=== PATIENT | male | born 1965 | race Caucasian/White ===

== ENCOUNTER 2020-04-19 04:55 | Day surgery (SDC) | payer BC ==
[2020-04-17 11:57] VITALS: BMI 19.3
[2020-04-19] MEDS ORDERED: LIDOCAINE HCL 1%, 10 MG/ML (20ML VIAL) ONE ×2 (08:44→09:57)
[2020-04-19] MEDS ORDERED: PROPOFOL 20 ML ONE ×3 (09:05→10:01)
[2020-04-19] MEDS ORDERED: MIDAZOLAM HCL 2 MG/2 ML SINGLE DOSE VIAL ONE (09:05)
[2020-04-19] MEDS ORDERED: ceFAZolin 2 GRAM PREMIX BAG IVPB ONE (09:37)
[2020-04-19] MEDS ORDERED: ceFAZolin SODIUM 1 GM VIAL ONE (09:37)
[2020-04-19] MEDS ORDERED: DEXAMETHASONE SOD PHOSPHATE 4 MG/1 ML VIAL ONE (09:37)
[2020-04-19] MEDS ORDERED: ONDANSETRON 4 MG/2 ML VIAL ONE (09:37)
[2020-04-19] MEDS ORDERED: PALONOSETRON HCL 0.25 MG/5 ML VIAL IVPUSH ONE (10:00)
[2020-04-19] MEDS ORDERED: DEXAMETHASONE SODIUM PHOSPHATE 12 MG in SODIUM CHLORIDE 50 ML IVPB ONE (10:00)
[2020-04-19] MEDS ORDERED: ONDANSETRON 4 MG/2 ML VIAL IVPUSH PRN (10:22)
[2020-04-19] MEDS ORDERED: oxyCODONE HCL 5 MG TABLET PO PRN (10:22)
[2020-04-19] MEDS ORDERED: WATER IV ONE (10:30)
[2020-04-19] MEDS ORDERED: DEXTROSE 5% IVPB ONE (10:30)
[2020-04-19] MEDS ORDERED: SODIUM CHLORIDE 1,000 ML IV SCH (10:30)
[2020-04-19] MEDS ORDERED: DEXTROSE 5% IV ONE (10:30)
[2020-04-19] MEDS ORDERED: OXALIPLATIN IV ONE (10:30)
[2020-04-19] MEDS ORDERED: LEUCOVORIN IVPB ONE (10:30)
[2020-04-19] MEDS ORDERED: WATER IVPB ONE (10:30)
[2020-04-19] MEDS ORDERED: FLUOROURACIL 2,500 MG/50 ML VIAL IVPUSH ONE (12:30)
[2020-04-19] MEDS ORDERED: SODIUM CHLORIDE CP ONE (12:45)
[2020-04-19] MEDS ORDERED: FLUOROURACIL CP ONE (12:45)
[2020-04-19] MEDS ORDERED: SODIUM CHLORIDE 1,000 ML IV STA (13:25)
[2020-04-20 07:25] VITALS: BP 102/58; PULSE 78; TEMP 98
[2020-04-20] MEDS ORDERED: PORTA CATH FLUSH 10 ML IVPUSH ONE (07:25)
== END 2020-04-19 18:00 | disposition home or self-care (01) ==
LOC: JASU-SURG 04:55
PROVIDERS: ATTEND Surgery Vascular Surgery
PROC: B548ZZA Ultrasonography of Superior Vena Cava, Guidance (ICD-10-PCS; 2020-04-19)
PROC: 02H633Z Insertion of Infusion Device into Right Atrium, Percutaneous Approach (ICD-10-PCS; principal; 2020-04-19 09:30)
DX: C18.9 Malignant neoplasm of colon, unspecified (principal)
CPT/HCPCS: 36561; C1788; 71045-TC-FY; 76000-TC-FY; 94760; G0498; J1644; J2469; J9263

== ENCOUNTER 2020-04-23 08:15 | Day surgery (SDC) | payer BC, OTHER ==
[2020-04-23] MEDS ORDERED: SODIUM CHLORIDE 1,000 ML IV ONE (09:00)
[2020-04-23 16:07] VITALS: BP 108/64; PULSE 73; TEMP 98.4
== END 2020-04-23 13:20 | disposition home or self-care (01) ==
LOC: JONCCHEMO 08:15
PROVIDERS: ATTEND Internal Medicine Hematology & Oncology
PROC: 3E0437Z Introduction of Electrolytic and Water Balance Substance into Central Vein, Percutaneous Approach (ICD-10-PCS; principal; 2020-04-23)
DX: C18.9 Malignant neoplasm of colon, unspecified (principal); C77.2 Secondary and unspecified malignant neoplasm of intra-abdominal lymph nodes; Z76.89 Persons encountering health services in other specified circumstances
CPT/HCPCS: 96365; 96366

== ENCOUNTER 2020-05-02 07:52 | Day surgery (SDC) | payer BC ==
[2020-05-02 09:38] LABS: BASO % 0.9 % (0-2.0); EOS % 6.9 % (0-4.5); HEMATOCRIT 39.3 % (35.4-49); HEMOGLOBIN 13.6 GM/dL (11.7-16.9); MCH 33.2 pg (25.7-33.7); MCHC 34.7 g/dl (32.0-35.9); MEAN CELL VOLUME 95.7 fl (80-96); MEAN PLT VOLUME 8.3 fl (7.5-11.1); MONO % 12.5 % (3.8-10.2); NEUT % 59.7 % (42.8-82.8); PLATELET COUNT 158 K/MM3 (134-434); RBC 4.11 M/mm3 (4.00-5.60); RDW 11.8 % (11.9-15.9); WHITE BLOOD COUNT 3.1 K/mm3 (4.0-10.0)
[2020-05-02] MEDS ORDERED: PALONOSETRON HCL 0.25 MG/5 ML VIAL IVPUSH ONE (10:00)
[2020-05-02] MEDS ORDERED: DEXAMETHASONE SODIUM PHOSPHATE 12 MG in SODIUM CHLORIDE 50 ML IVPB ONE (10:00)
[2020-05-02 10:02] LABS: POTASSIUM 3.6 mmol/L (3.5-5.1)
[2020-05-02 10:04] LABS: CALCIUM 9.1 mg/dL (8.5-10.1)
[2020-05-02 10:05] LABS: ALBUMIN 3.8 g/dl (3.4-5.0); BLOOD UREA NITROGEN 14.3 mg/dL (7-18)
[2020-05-02 10:08] LABS: CREATININE 1.1 mg/dL (0.55-1.3)
[2020-05-02 10:10] LABS: BILIRUBIN,TOTAL 2.2 mg/dL (0.2-1); TOT PROT 6.9 g/dl (6.4-8.2)
[2020-05-02] MEDS ORDERED: WATER IVPB ONE (10:30)
[2020-05-02] MEDS ORDERED: DEXTROSE 5% IV ONE (10:30)
[2020-05-02] MEDS ORDERED: LEUCOVORIN IVPB ONE (10:30)
[2020-05-02] MEDS ORDERED: OXALIPLATIN IV ONE (10:30)
[2020-05-02] MEDS ORDERED: DEXTROSE 5% IVPB ONE (10:30)
[2020-05-02] MEDS ORDERED: WATER IV ONE (10:30)
[2020-05-02 11:22] VITALS: TEMP 98.1
[2020-05-02] MEDS ORDERED: PORTA CATH FLUSH 10 ML IVPUSH ONE (11:27)
[2020-05-02] MEDS ORDERED: FLUOROURACIL 500 MG/10 ML VIAL IVPUSH ONE (12:30)
[2020-05-02] MEDS ORDERED: SODIUM CHLORIDE 500 ML IV STA (12:31)
[2020-05-02] MEDS ORDERED: FLUOROURACIL CP ONE (12:45)
[2020-05-02] MEDS ORDERED: SODIUM CHLORIDE CP ONE (12:45)
[2020-05-02 16:20] VITALS: BP 112/65; PULSE 68
== END 2020-05-02 14:10 | disposition home or self-care (01) ==
LOC: JONCCHEMO 07:52
PROVIDERS: ATTEND Internal Medicine Hematology & Oncology
DX: Z51.11 Encounter for antineoplastic chemotherapy (principal); C18.9 Malignant neoplasm of colon, unspecified; C77.2 Secondary and unspecified malignant neoplasm of intra-abdominal lymph nodes
CPT/HCPCS: 36415; 80053; 85025; 96366; 96367; 96375; 96413; 96415; G0498; J2469; J9190; J9263

== ENCOUNTER 2020-05-04 07:00 | Day surgery (SDC) | payer BC ==
[2020-05-04] MEDS ORDERED: SODIUM CHLORIDE 1,000 ML IV SCH (09:15)
[2020-05-04 17:36] VITALS: TEMP 98.3
[2020-05-04 17:50] VITALS: BP 102/59; PULSE 68
[2020-05-04] MEDS ORDERED: PORTA CATH FLUSH 10 ML IVPUSH ONE (17:50)
== END 2020-05-04 13:20 | disposition home or self-care (01) ==
LOC: JONCNONCHE 07:00
PROVIDERS: ATTEND Internal Medicine Hematology & Oncology
PROC: 3E0437Z Introduction of Electrolytic and Water Balance Substance into Central Vein, Percutaneous Approach (ICD-10-PCS; principal; 2020-05-04)
DX: C18.9 Malignant neoplasm of colon, unspecified (principal); Z76.89 Persons encountering health services in other specified circumstances
CPT/HCPCS: 96360; 96361

== ENCOUNTER 2020-05-11 07:05 | Day surgery (SDC) | payer BC ==
[2020-05-11] MEDS ORDERED: SODIUM CHLORIDE 1,000 ML IV ONE (10:00)
[2020-05-11 16:24] VITALS: TEMP 98.1
[2020-05-11 16:26] VITALS: BP 111/66; PULSE 83
== END 2020-05-11 13:45 | disposition home or self-care (01) ==
LOC: JONCNONCHE 07:05
PROVIDERS: ATTEND Internal Medicine Hematology & Oncology
PROC: 3E043GC Introduction of Other Therapeutic Substance into Central Vein, Percutaneous Approach (ICD-10-PCS; principal; 2020-05-11)
DX: C20 Malignant neoplasm of rectum (principal); E86.0 Dehydration
CPT/HCPCS: 96360; 96361

== ENCOUNTER 2020-05-16 07:26 | Day surgery (SDC) | payer BC ==
[2020-05-16] MEDS ORDERED: DEXAMETHASONE SODIUM PHOSPHATE 12 MG in SODIUM CHLORIDE 50 ML IVPB ONE (09:30)
[2020-05-16] MEDS ORDERED: PALONOSETRON HCL 0.25 MG/5 ML VIAL IVPUSH ONE (09:30)
[2020-05-16 09:53] LABS: BASO % 2.1 % (0-2.0); EOS % 5.5 % (0-4.5); HEMATOCRIT 38.4 % (35.4-49); HEMOGLOBIN 13.5 GM/dL (11.7-16.9); LYMPH % 16.5 % (8-40); MCH 33.8 pg (25.7-33.7); MEAN CELL VOLUME 96.5 fl (80-96); MEAN PLT VOLUME 8.3 fl (7.5-11.1); MONO % 16.2 % (3.8-10.2); NEUT % 59.7 % (42.8-82.8); PLATELET COUNT 149 K/MM3 (134-434); RBC 3.98 M/mm3 (4.00-5.60); RDW 12.7 % (11.9-15.9); WHITE BLOOD COUNT 3.7 K/mm3 (4.0-10.0)
[2020-05-16] MEDS ORDERED: OXALIPLATIN IV ONE (10:00)
[2020-05-16] MEDS ORDERED: WATER IV ONE (10:00)
[2020-05-16] MEDS ORDERED: WATER IVPB ONE (10:00)
[2020-05-16] MEDS ORDERED: DEXTROSE 5% IV ONE (10:00)
[2020-05-16] MEDS ORDERED: LEUCOVORIN IVPB ONE (10:00)
[2020-05-16] MEDS ORDERED: DEXTROSE 5% IVPB ONE (10:00)
[2020-05-16 10:03] LABS: POTASSIUM 3.8 mmol/L (3.5-5.1)
[2020-05-16 10:05] LABS: ALBUMIN 3.9 g/dl (3.4-5.0); CALCIUM 9.1 mg/dL (8.5-10.1)
[2020-05-16 10:06] LABS: BLOOD UREA NITROGEN 13.6 mg/dL (7-18); MAGNESIUM 2.2 mg/dL (1.8-2.4)
[2020-05-16 10:09] LABS: CREATININE 1.2 mg/dL (0.55-1.3)
[2020-05-16 10:10] LABS: BILIRUBIN,TOTAL 2.3 mg/dL (0.2-1); TOT PROT 7.2 g/dl (6.4-8.2)
[2020-05-16] MEDS ORDERED: FLUOROURACIL 500 MG/10 ML VIAL IVPUSH ONE (12:00)
[2020-05-16] MEDS ORDERED: FLUOROURACIL CP ONE (12:15)
[2020-05-16] MEDS ORDERED: SODIUM CHLORIDE CP ONE (12:15)
[2020-05-16 14:32] LABS: BILIRUBIN,DIRECT 0.5 mg/dL (0.0-0.2)
[2020-05-16 17:31] VITALS: TEMP 97.7
[2020-05-16 17:33] VITALS: BP 109/67; PULSE 71
== END 2020-05-16 13:50 | disposition home or self-care (01) ==
LOC: JONCCHEMO 07:26
PROVIDERS: ATTEND Internal Medicine Hematology & Oncology
DX: Z51.11 Encounter for antineoplastic chemotherapy (principal); C19 Malignant neoplasm of rectosigmoid junction
CPT/HCPCS: 36415; 80053; 82248; 82378; 83735; 85025; 96366; 96367; 96375; 96411; 96413; 96415; G0498; J2469; J9190; J9263

== ENCOUNTER 2020-05-18 06:58 | Day surgery (SDC) | payer BC ==
[2020-05-18] MEDS ORDERED: SODIUM CHLORIDE 1,000 ML IV SCH (08:00)
[2020-05-18 12:59] VITALS: TEMP 98.6
[2020-05-18] MEDS ORDERED: PORTA CATH FLUSH 10 ML IVPUSH ONE (13:00)
[2020-05-18 13:41] VITALS: BP 88/51; PULSE 63
== END 2020-05-18 13:20 | disposition home or self-care (01) ==
LOC: JONCNONCHE 06:58
PROVIDERS: ATTEND Internal Medicine Hematology & Oncology
PROC: 3E0437Z Introduction of Electrolytic and Water Balance Substance into Central Vein, Percutaneous Approach (ICD-10-PCS; principal; 2020-05-18)
DX: C19 Malignant neoplasm of rectosigmoid junction (principal)
CPT/HCPCS: 96360; 96361

== ENCOUNTER 2020-05-25 07:46 | Day surgery (SDC) | payer BC ==
[2020-05-25] MEDS ORDERED: SODIUM CHLORIDE 1,000 ML IV SCH (10:15)
[2020-05-25 11:15] LABS: BASO % 2.3 % (0-2.0); EOS % 12.3 % (0-4.5); HEMATOCRIT 34.2 % (35.4-49); HEMOGLOBIN 12.1 GM/dL (11.7-16.9); LYMPH % 14.6 % (8-40); MCH 33.9 pg (25.7-33.7); MCHC 35.5 g/dl (32.0-35.9); MEAN CELL VOLUME 95.7 fl (80-96); MEAN PLT VOLUME 8.9 fl (7.5-11.1); MONO % 12.1 % (3.8-10.2); NEUT % 58.7 % (42.8-82.8); PLATELET COUNT 138 K/MM3 (134-434); RBC 3.57 M/mm3 (4.00-5.60); RDW 13.6 % (11.9-15.9); WHITE BLOOD COUNT 3.7 K/mm3 (4.0-10.0)
[2020-05-25 11:54] LABS: POTASSIUM 3.7 mmol/L (3.5-5.1)
[2020-05-25 11:55] LABS: CALCIUM 8.7 mg/dL (8.5-10.1)
[2020-05-25 11:56] LABS: ALBUMIN 3.5 g/dl (3.4-5.0); BLOOD UREA NITROGEN 12.2 mg/dL (7-18)
[2020-05-25 12:00] LABS: BILIRUBIN,TOTAL 1.8 mg/dL (0.2-1)
[2020-05-25 12:02] LABS: TOT PROT 6.5 g/dl (6.4-8.2)
[2020-05-25 14:34] VITALS: TEMP 97.7
[2020-05-25 14:35] VITALS: BP 111/69; PULSE 81
== END 2020-05-25 12:00 | disposition home or self-care (01) ==
LOC: JONCNONCHE 07:46
PROVIDERS: ATTEND Internal Medicine Hematology & Oncology
PROC: 3E0437Z Introduction of Electrolytic and Water Balance Substance into Central Vein, Percutaneous Approach (ICD-10-PCS; principal; 2020-05-25)
DX: C19 Malignant neoplasm of rectosigmoid junction (principal); Z76.89 Persons encountering health services in other specified circumstances
CPT/HCPCS: 36415; 80053; 85025; 96360; 96361

== ENCOUNTER 2020-05-30 07:40 | Day surgery (SDC) | payer BC ==
[2020-05-30] MEDS ORDERED: DEXAMETHASONE SODIUM PHOSPHATE 12 MG in SODIUM CHLORIDE 50 ML IVPB ONE (09:30)
[2020-05-30] MEDS ORDERED: PALONOSETRON HCL 0.25 MG/5 ML VIAL IVPUSH ONE (09:30)
[2020-05-30 09:35] LABS: BASO % 2.8 % (0-2.0); EOS % 8.4 % (0-4.5); HEMATOCRIT 36.9 % (35.4-49); HEMOGLOBIN 12.9 GM/dL (11.7-16.9); LYMPH % 17.2 % (8-40); MCH 34.2 pg (25.7-33.7); MEAN CELL VOLUME 97.6 fl (80-96); MEAN PLT VOLUME 8.3 fl (7.5-11.1); MONO % 16.5 % (3.8-10.2); NEUT % 55.1 % (42.8-82.8); PLATELET COUNT 126 K/MM3 (134-434); RBC 3.78 M/mm3 (4.00-5.60); RDW 14.9 % (11.9-15.9); WHITE BLOOD COUNT 3.7 K/mm3 (4.0-10.0)
[2020-05-30 09:59] LABS: CALCIUM 8.9 mg/dL (8.5-10.1)
[2020-05-30 10:00] LABS: ALBUMIN 3.7 g/dl (3.4-5.0); BLOOD UREA NITROGEN 17.2 mg/dL (7-18)
[2020-05-30] MEDS ORDERED: DEXTROSE 5% IVPB ONE (10:00)
[2020-05-30] MEDS ORDERED: OXALIPLATIN IV ONE (10:00)
[2020-05-30] MEDS ORDERED: WATER IV ONE (10:00)
[2020-05-30] MEDS ORDERED: DEXTROSE 5% IV ONE (10:00)
[2020-05-30] MEDS ORDERED: WATER IVPB ONE (10:00)
[2020-05-30] MEDS ORDERED: LEUCOVORIN IVPB ONE (10:00)
[2020-05-30 10:03] LABS: CREATININE 1.1 mg/dL (0.55-1.3)
[2020-05-30 10:05] LABS: BILIRUBIN,TOTAL 2.2 mg/dL (0.2-1); TOT PROT 6.9 g/dl (6.4-8.2)
[2020-05-30 10:09] LABS: POTASSIUM 3.6 mmol/L (3.5-5.1)
[2020-05-30 10:50] LABS: MAGNESIUM 2.2 mg/dL (1.8-2.4)
[2020-05-30] MEDS ORDERED: FLUOROURACIL 500 MG/10 ML VIAL IVPUSH ONE (12:00)
[2020-05-30] MEDS ORDERED: SODIUM CHLORIDE CP ONE (12:15)
[2020-05-30] MEDS ORDERED: FLUOROURACIL CP ONE (12:15)
[2020-05-30 15:54] VITALS: TEMP 98.1
[2020-05-30 15:55] VITALS: BP 108/70; PULSE 69
== END 2020-05-30 14:30 | disposition home or self-care (01) ==
LOC: JONCCHEMO 07:40
PROVIDERS: ATTEND Internal Medicine Hematology & Oncology
DX: Z51.11 Encounter for antineoplastic chemotherapy (principal); C19 Malignant neoplasm of rectosigmoid junction
CPT/HCPCS: 36415; 80053; 83735; 85025; 96366; 96367; 96375; 96413; 96415; G0498; J2469; J9190; J9263

== ENCOUNTER 2020-06-01 07:04 | Day surgery (SDC) | payer BC ==
[2020-06-01] MEDS: SODIUM CHLORIDE 1,000 ML IV ONE ×2 (11:05→11:26)
[2020-06-01 16:15] VITALS: BP 100/62; PULSE 65; TEMP 99
== END 2020-06-01 13:20 | disposition home or self-care (01) ==
LOC: JONCNONCHE 07:04
PROVIDERS: ATTEND Internal Medicine Hematology & Oncology
DX: C19 Malignant neoplasm of rectosigmoid junction (principal); Z76.89 Persons encountering health services in other specified circumstances
CPT/HCPCS: 96360; 96361

== ENCOUNTER 2020-06-06 07:35 | Day surgery (SDC) | payer BC ==
[2020-06-06] MEDS ORDERED: SODIUM CHLORIDE 1,000 ML IV ONE (11:15)
[2020-06-06 14:14] LABS: BASO % 1.6 % (0-2.0); EOS % 11.5 % (0-4.5); HEMATOCRIT 36.1 % (35.4-49); MCH 34.9 pg (25.7-33.7); MCHC 36.1 g/dl (32.0-35.9); MEAN CELL VOLUME 96.6 fl (80-96); MEAN PLT VOLUME 9.2 fl (7.5-11.1); MONO % 18.4 % (3.8-10.2); NEUT % 47.5 % (42.8-82.8); PLATELET COUNT 150 K/MM3 (134-434); RBC 3.73 M/mm3 (4.00-5.60); RDW 16.3 % (11.9-15.9); WHITE BLOOD COUNT 2.9 K/mm3 (4.0-10.0)
[2020-06-06 14:47] LABS: POTASSIUM 4.1 mmol/L (3.5-5.1)
[2020-06-06 14:49] LABS: BLOOD UREA NITROGEN 18.6 mg/dL (7-18); CALCIUM 9.4 mg/dL (8.5-10.1)
[2020-06-06 14:53] LABS: CREATININE 1.1 mg/dL (0.55-1.3)
[2020-06-06 14:54] LABS: BILIRUBIN,TOTAL 2.3 mg/dL (0.2-1); TOT PROT 7.2 g/dl (6.4-8.2)
[2020-06-06 16:41] VITALS: TEMP 98.1
[2020-06-06 16:42] VITALS: BP 123/75; PULSE 77
== END 2020-06-06 15:30 | disposition home or self-care (01) ==
LOC: JONCCHEMO 07:35
PROVIDERS: ATTEND Internal Medicine Hematology & Oncology
PROC: 3E0437Z Introduction of Electrolytic and Water Balance Substance into Central Vein, Percutaneous Approach (ICD-10-PCS; principal; 2020-06-06)
DX: C19 Malignant neoplasm of rectosigmoid junction (principal); Z76.89 Persons encountering health services in other specified circumstances
CPT/HCPCS: 36415; 80053; 85025; 96360; 96361

== ENCOUNTER 2020-06-08 08:10 | Day surgery (SDC) | payer BC ==
[2020-06-08] MEDS ORDERED: SODIUM CHLORIDE 1,000 ML IV ONE (10:30)
[2020-06-08 12:52] VITALS: TEMP 98.1
[2020-06-08 13:09] VITALS: BP 105/64; PULSE 63
[2020-06-08] MEDS ORDERED: PORTA CATH FLUSH 10 ML IVPUSH ONE (13:09)
== END 2020-06-08 12:20 | disposition home or self-care (01) ==
LOC: JONCNONCHE 08:10
PROVIDERS: ATTEND Internal Medicine Hematology & Oncology
PROC: 3E0437Z Introduction of Electrolytic and Water Balance Substance into Central Vein, Percutaneous Approach (ICD-10-PCS; principal; 2020-06-08)
DX: C19 Malignant neoplasm of rectosigmoid junction (principal); C77.9 Secondary and unspecified malignant neoplasm of lymph node, unspecified; Z76.89 Persons encountering health services in other specified circumstances
CPT/HCPCS: 96360; 96361

== ENCOUNTER 2020-06-13 07:35 | Day surgery (SDC) | payer BC ==
[2020-06-13 09:29] LABS: BASO % 2.7 % (0-2.0); EOS % 7.8 % (0-4.5); HEMATOCRIT 36.3 % (35.4-49); HEMOGLOBIN 12.6 GM/dL (11.7-16.9); LYMPH % 17.1 % (8-40); MCH 34.7 pg (25.7-33.7); MCHC 34.7 g/dl (32.0-35.9); MEAN PLT VOLUME 8.5 fl (7.5-11.1); MONO % 18.6 % (3.8-10.2); NEUT % 53.8 % (42.8-82.8); PLATELET COUNT 126 K/MM3 (134-434); RBC 3.63 M/mm3 (4.00-5.60); WHITE BLOOD COUNT 3.5 K/mm3 (4.0-10.0)
[2020-06-13 09:54] LABS: POTASSIUM 3.8 mmol/L (3.5-5.1)
[2020-06-13 09:56] LABS: ALBUMIN 3.8 g/dl (3.4-5.0); CALCIUM 9.5 mg/dL (8.5-10.1)
[2020-06-13 09:57] LABS: BLOOD UREA NITROGEN 11.1 mg/dL (7-18); MAGNESIUM 2.2 mg/dL (1.8-2.4)
[2020-06-13 10:00] LABS: CREATININE 1.1 mg/dL (0.55-1.3)
[2020-06-13] MEDS ORDERED: PALONOSETRON HCL 0.25 MG/5 ML VIAL IVPUSH ONE (10:00)
[2020-06-13] MEDS ORDERED: DEXAMETHASONE SODIUM PHOSPHATE 12 MG in SODIUM CHLORIDE 50 ML IVPB ONE (10:00)
[2020-06-13] MEDS ORDERED: LEUCOVORIN IVPB ONE (10:30)
[2020-06-13] MEDS ORDERED: WATER IVPB ONE (10:30)
[2020-06-13] MEDS ORDERED: DEXTROSE 5% IVPB ONE (10:30)
[2020-06-13] MEDS ORDERED: OXALIPLATIN IV ONE (10:30)
[2020-06-13] MEDS ORDERED: WATER IV ONE (10:30)
[2020-06-13] MEDS ORDERED: DEXTROSE 5% IV ONE (10:30)
[2020-06-13] MEDS ORDERED: SODIUM CHLORIDE 500 ML IV STA (10:40)
[2020-06-13] MEDS ORDERED: FLUOROURACIL 500 MG/10 ML VIAL IVPUSH ONE (12:30)
[2020-06-13] MEDS ORDERED: FLUOROURACIL CP ONE (12:45)
[2020-06-13] MEDS ORDERED: SODIUM CHLORIDE CP ONE (12:45)
[2020-06-13 15:01] VITALS: TEMP 97.9
[2020-06-13 15:03] VITALS: BP 109/69; PULSE 72
== END 2020-06-13 14:17 | disposition home or self-care (01) ==
LOC: JONCCHEMO 07:35
PROVIDERS: ATTEND Internal Medicine Hematology & Oncology
DX: Z51.11 Encounter for antineoplastic chemotherapy (principal); C19 Malignant neoplasm of rectosigmoid junction; C77.9 Secondary and unspecified malignant neoplasm of lymph node, unspecified
CPT/HCPCS: 36415; 80053; 82378; 83735; 85025; 96366; 96367; 96375; 96413; 96415; G0498; J2469; J9190; J9263

== ENCOUNTER 2020-06-15 07:24 | Day surgery (SDC) | payer BC ==
[2020-06-15] MEDS ORDERED: SODIUM CHLORIDE 1,000 ML IV ONE (08:30)
[2020-06-15 16:19] VITALS: TEMP 98.1
[2020-06-15 16:25] VITALS: BP 103/58; PULSE 60
== END 2020-06-15 13:25 | disposition home or self-care (01) ==
LOC: JONCNONCHE 07:24
PROVIDERS: ATTEND Internal Medicine Hematology & Oncology
DX: C19 Malignant neoplasm of rectosigmoid junction (principal); C77.9 Secondary and unspecified malignant neoplasm of lymph node, unspecified; Z76.89 Persons encountering health services in other specified circumstances
CPT/HCPCS: 96360; 96361

== ENCOUNTER 2020-06-20 07:50 | Day surgery (SDC) | payer BC ==
[2020-06-20 11:17] LABS: HEMATOCRIT 33.8 % (35.4-49); HEMOGLOBIN 11.9 GM/dL (11.7-16.9); MCH 35.2 pg (25.7-33.7); MCHC 35.2 g/dl (32.0-35.9); MEAN CELL VOLUME 100.1 fl (80-96); MEAN PLT VOLUME 9.4 fl (7.5-11.1); PLATELET COUNT 119 K/MM3 (134-434); RBC 3.37 M/mm3 (4.00-5.60); RDW 17.8 % (11.9-15.9); WHITE BLOOD COUNT 2.1 K/mm3 (4.0-10.0)
[2020-06-20] MEDS ORDERED: SODIUM CHLORIDE 1,000 ML IV ONE (11:30)
[2020-06-20 11:37] LABS: POTASSIUM 4.1 mmol/L (3.5-5.1)
[2020-06-20 11:40] LABS: ALBUMIN 3.7 g/dl (3.4-5.0); BLOOD UREA NITROGEN 16.1 mg/dL (7-18); CALCIUM 9.1 mg/dL (8.5-10.1)
[2020-06-20 11:43] LABS: CREATININE 1.1 mg/dL (0.55-1.3)
[2020-06-20 11:44] LABS: BILIRUBIN,TOTAL 1.9 mg/dL (0.2-1); TOT PROT 6.9 g/dl (6.4-8.2)
[2020-06-20 13:35] LABS: ANISOCYTOSIS 1+; MACROCYTOSIS 1+; PLATELET ESTIMATE DECREASED
[2020-06-20] MEDS ORDERED: TBO-FILGRASTIM 300 MCG/0.5 ML DISP.SYRINGE SQ ONE (14:04)
[2020-06-20 17:16] VITALS: BP 108/71; PULSE 79; TEMP 98.1
== END 2020-06-20 14:25 | disposition home or self-care (01) ==
LOC: JONCCHEMO 07:50
PROVIDERS: ATTEND Internal Medicine Hematology & Oncology
DX: C19 Malignant neoplasm of rectosigmoid junction (principal); C77.9 Secondary and unspecified malignant neoplasm of lymph node, unspecified; Z76.89 Persons encountering health services in other specified circumstances
CPT/HCPCS: 36415; 80053; 85027; 96360; 96372; J1447

== ENCOUNTER 2020-06-27 11:39 | Day surgery (SDC) | payer BC ==
[~2020-06-27 11:39] MED LIST: SODIUM CHLORIDE 1,000 ML IV STA
[2020-06-27 14:34] VITALS: TEMP 98.3
[2020-06-27 14:35] VITALS: BP 111/74; PULSE 82
== END 2020-06-27 14:10 | disposition home or self-care (01) ==
LOC: JONCNONCHE 11:39
PROVIDERS: ATTEND Internal Medicine Hematology & Oncology
PROC: 3E0437Z Introduction of Electrolytic and Water Balance Substance into Central Vein, Percutaneous Approach (ICD-10-PCS; principal; 2020-06-27)
DX: C19 Malignant neoplasm of rectosigmoid junction (principal); Z76.89 Persons encountering health services in other specified circumstances
CPT/HCPCS: 96360; 96361

== ENCOUNTER 2020-07-04 06:55 | Day surgery (SDC) | payer BC ==
[2020-07-04 09:23] LABS: BASO % 3.5 % (0-2.0); EOS % 8.4 % (0-4.5); HEMATOCRIT 36.8 % (35.4-49); HEMOGLOBIN 12.9 GM/dL (11.7-16.9); LYMPH % 18.3 % (8-40); MCH 36.6 pg (25.7-33.7); MCHC 35.2 g/dl (32.0-35.9); MEAN CELL VOLUME 104.2 fl (80-96); MEAN PLT VOLUME 8.6 fl (7.5-11.1); NEUT % 55.8 % (42.8-82.8); PLATELET COUNT 172 K/MM3 (134-434); RBC 3.53 M/mm3 (4.00-5.60); RDW 19.2 % (11.9-15.9); WHITE BLOOD COUNT 3.3 K/mm3 (4.0-10.0)
[2020-07-04 09:43] LABS: POTASSIUM 3.9 mmol/L (3.5-5.1)
[2020-07-04 09:45] LABS: CALCIUM 8.9 mg/dL (8.5-10.1)
[2020-07-04 09:46] LABS: ALBUMIN 3.8 g/dl (3.4-5.0); BLOOD UREA NITROGEN 13.8 mg/dL (7-18); MAGNESIUM 2.3 mg/dL (1.8-2.4)
[2020-07-04 09:50] LABS: BILIRUBIN,TOTAL 1.7 mg/dL (0.2-1); TOT PROT 6.9 g/dl (6.4-8.2)
[2020-07-04] MEDS ORDERED: SODIUM CHLORIDE 0.45% 1,000 ML IV SCH (10:00)
[2020-07-04] MEDS ORDERED: DEXAMETHASONE SODIUM PHOSPHATE 12 MG in SODIUM CHLORIDE 50 ML IVPB ONE (10:00)
[2020-07-04] MEDS ORDERED: PALONOSETRON HCL 0.25 MG/5 ML VIAL IVPUSH ONE (10:00)
[2020-07-04] MEDS ORDERED: OXALIPLATIN IV ONE (10:30)
[2020-07-04] MEDS ORDERED: WATER IV ONE (10:30)
[2020-07-04] MEDS ORDERED: WATER IVPB ONE (10:30)
[2020-07-04] MEDS ORDERED: LEUCOVORIN IVPB ONE (10:30)
[2020-07-04] MEDS ORDERED: DEXTROSE 5% IV ONE (10:30)
[2020-07-04] MEDS ORDERED: DEXTROSE 5% IVPB ONE (10:30)
[2020-07-04] MEDS ORDERED: FLUOROURACIL 2,500 MG/50 ML VIAL IVPUSH ONE (12:30)
[2020-07-04] MEDS ORDERED: SODIUM CHLORIDE CP ONE (12:45)
[2020-07-04] MEDS ORDERED: FLUOROURACIL CP ONE (12:45)
[2020-07-04] MEDS ORDERED: DEXAMETHASONE SOD PHOSPHATE 20 MG/5 ML VIAL IVPB ONE (14:09)
[2020-07-04] MEDS ORDERED: FAMOTIDINE 20 MG/50 ML IVPB 20 MG/50 ML MG IVPB ONE (14:10)
[2020-07-04 17:42] VITALS: TEMP 97.9
[2020-07-04] MEDS ORDERED: PORTA CATH FLUSH 10 ML IVPUSH ONE (18:10)
[2020-07-04 18:11] VITALS: BP 94/60; PULSE 57
== END 2020-07-04 17:15 | disposition home or self-care (01) ==
LOC: JONCCHEMO 06:55
PROVIDERS: ATTEND Internal Medicine Hematology & Oncology
DX: Z51.11 Encounter for antineoplastic chemotherapy (principal); C19 Malignant neoplasm of rectosigmoid junction
CPT/HCPCS: 36415; 80053; 83735; 85025; 96361; 96366; 96367; 96375; 96413; G0498; J2469; J9263

== ENCOUNTER 2020-07-06 07:21 | Day surgery (SDC) | payer BC ==
[2020-07-06] MEDS ORDERED: SODIUM CHLORIDE 1,000 ML IV STA (13:23)
[2020-07-06 16:29] VITALS: BP 96/57; PULSE 60; TEMP 98.3
== END 2020-07-06 15:30 | disposition home or self-care (01) ==
LOC: JONCNONCHE 07:21
PROVIDERS: ATTEND Internal Medicine Hematology & Oncology
PROC: 3E043GC Introduction of Other Therapeutic Substance into Central Vein, Percutaneous Approach (ICD-10-PCS; principal; 2020-07-06)
DX: C19 Malignant neoplasm of rectosigmoid junction (principal); Z76.89 Persons encountering health services in other specified circumstances
CPT/HCPCS: 96365; 96366

== ENCOUNTER 2020-07-13 06:45 | Day surgery (SDC) | payer BC, OTHER ==
[2020-07-13] MEDS ORDERED: SODIUM CHLORIDE 1,000 ML IV ONE (10:15)
[2020-07-13 15:49] VITALS: TEMP 97.7
[2020-07-13 15:50] VITALS: BP 114/67; PULSE 61
[2020-07-13] MEDS ORDERED: PORTA CATH FLUSH 10 ML IVPUSH ONE (15:50)
== END 2020-07-13 13:25 | disposition home or self-care (01) ==
LOC: JONCNONCHE 06:45
PROVIDERS: ATTEND Internal Medicine Hematology & Oncology
PROC: 3E0437Z Introduction of Electrolytic and Water Balance Substance into Central Vein, Percutaneous Approach (ICD-10-PCS; principal; 2020-07-13)
DX: C19 Malignant neoplasm of rectosigmoid junction (principal); Z76.89 Persons encountering health services in other specified circumstances
CPT/HCPCS: 96360; 96361

== ENCOUNTER 2020-07-18 07:40 | Day surgery (SDC) | payer BC, OTHER ==
[2020-07-18] MEDS ORDERED: FAMOTIDINE 20 MG/50 ML IVPB 20 MG/50 ML MG IVPB ONE (09:30)
[2020-07-18] MEDS ORDERED: DEXAMETHASONE SODIUM PHOSPHATE 20 MG, DIPHENHYDRAMINE 25 MG in SODIUM CHLORIDE 100 ML IVPB ONE (09:30)
[2020-07-18] MEDS ORDERED: PALONOSETRON HCL 0.25 MG/5 ML VIAL IVPUSH ONE (09:30)
[2020-07-18] MEDS ORDERED: SODIUM CHLORIDE 500 ML IV STA (09:55)
[2020-07-18] MEDS ORDERED: DEXAMETHASONE SOD PHOSPHATE 20 MG/5 ML VIAL IVPB ONE (09:55)
[2020-07-18 09:57] LABS: BASO % 2.4 % (0-2.0); EOS % 10.4 % (0-4.5); HEMATOCRIT 35.9 % (35.4-49); HEMOGLOBIN 12.8 GM/dL (11.7-16.9); LYMPH % 15.4 % (8-40); MCH 37.3 pg (25.7-33.7); MCHC 35.6 g/dl (32.0-35.9); MEAN CELL VOLUME 104.8 fl (80-96); MEAN PLT VOLUME 8.4 fl (7.5-11.1); MONO % 14.4 % (3.8-10.2); NEUT % 57.4 % (42.8-82.8); PLATELET COUNT 143 K/MM3 (134-434); RBC 3.42 M/mm3 (4.00-5.60); RDW 16.9 % (11.9-15.9); WHITE BLOOD COUNT 3.6 K/mm3 (4.0-10.0)
[2020-07-18] MEDS ORDERED: OXALIPLATIN IV ONE (10:00)
[2020-07-18] MEDS ORDERED: DEXTROSE 5% IVPB ONE (10:00)
[2020-07-18] MEDS ORDERED: WATER IV ONE (10:00)
[2020-07-18] MEDS ORDERED: WATER IVPB ONE (10:00)
[2020-07-18] MEDS ORDERED: LEUCOVORIN IVPB ONE (10:00)
[2020-07-18] MEDS ORDERED: DEXTROSE 5% IV ONE (10:00)
[2020-07-18 10:16] LABS: CALCIUM 9.1 mg/dL (8.5-10.1)
[2020-07-18 10:17] LABS: ALBUMIN 3.8 g/dl (3.4-5.0); BLOOD UREA NITROGEN 10.8 mg/dL (7-18)
[2020-07-18 10:21] LABS: BILIRUBIN,TOTAL 1.7 mg/dL (0.2-1); TOT PROT 6.9 g/dl (6.4-8.2)
[2020-07-18] MEDS ORDERED: DEXAMETHASONE SODIUM PHOSPHATE 12 MG in SODIUM CHLORIDE 50 ML IVPB ONE (12:00)
[2020-07-18] MEDS ORDERED: FLUOROURACIL 2,500 MG/50 ML VIAL IVPUSH ONE (12:00)
[2020-07-18] MEDS ORDERED: FLUOROURACIL CP ONE (12:15)
[2020-07-18] MEDS ORDERED: SODIUM CHLORIDE CP ONE (12:15)
[2020-07-18 18:33] VITALS: TEMP 98
[2020-07-18 18:43] VITALS: BP 107/77; PULSE 61
[2020-07-18] MEDS ORDERED: PORTA CATH FLUSH 10 ML IVPUSH ONE (18:43)
== END 2020-07-18 17:20 | disposition home or self-care (01) ==
LOC: JONCCHEMO 07:40
PROVIDERS: ATTEND Internal Medicine Hematology & Oncology
PROC: 3E043GC Introduction of Other Therapeutic Substance into Central Vein, Percutaneous Approach (ICD-10-PCS; principal; 2020-07-18)
PROC: 3E043GC Introduction of Other Therapeutic Substance into Central Vein, Percutaneous Approach (ICD-10-PCS; 2020-07-18)
DX: C19 Malignant neoplasm of rectosigmoid junction (principal); Z76.89 Persons encountering health services in other specified circumstances
CPT/HCPCS: 36415; 80053; 85025; 96361; 96365; 96366; J2469

== ENCOUNTER 2020-07-19 09:45 | Day surgery (SDC) | payer BC, OTHER ==
[2020-07-19] MEDS ORDERED: SODIUM CHLORIDE CP ONE (11:30)
[2020-07-19] MEDS ORDERED: FLUOROURACIL CP ONE (11:30)
[2020-07-19] MEDS ORDERED: DEXAMETHASONE SODIUM PHOSPHATE 10 MG in SODIUM CHLORIDE 50 ML IVPB ONE (12:15)
[2020-07-19 16:15] VITALS: BP 111/60; PULSE 71; TEMP 98.1
== END 2020-07-19 16:00 | disposition home or self-care (01) ==
LOC: JONCNONCHE 09:45
PROVIDERS: ATTEND Internal Medicine Hematology & Oncology
PROC: 3E04329 Introduction of Other Anti-infective into Central Vein, Percutaneous Approach (ICD-10-PCS; principal; 2020-07-19)
PROC: 3E04305 Introduction of Other Antineoplastic into Central Vein, Percutaneous Approach (ICD-10-PCS; 2020-07-19)
PROC: 3E043GC Introduction of Other Therapeutic Substance into Central Vein, Percutaneous Approach (ICD-10-PCS; 2020-07-19)
DX: Z51.11 Encounter for antineoplastic chemotherapy (principal); C19 Malignant neoplasm of rectosigmoid junction
CPT/HCPCS: 96374; G0498

== ENCOUNTER → 2020-07-25 | Day surgery (SDC) | payer BC, OTHER | END | disposition home or self-care (01) | LOC: JRADIR 10:18 | PROVIDERS: ATTEND Internal Medicine Hematology & Oncology | PROC: B518YZA Fluoroscopy of Superior Vena Cava using Other Contrast, Guidance (ICD-10-PCS; principal; 2020-07-25) | DX: C20 Malignant neoplasm of rectum (principal) | CPT/HCPCS: 36598 ==

== ENCOUNTER 2020-07-27 06:37 | Day surgery (SDC) | payer BC, OTHER ==
[2020-07-27] MEDS ORDERED: SODIUM CHLORIDE 1,000 ML IV ONE (08:15)
[2020-07-27 14:08] VITALS: TEMP 98
[2020-07-27 14:09] VITALS: BP 99/64; PULSE 64
== END 2020-07-27 11:35 | disposition home or self-care (01) ==
LOC: JONCNONCHE 06:37
PROVIDERS: ATTEND Internal Medicine Hematology & Oncology
PROC: 3E0437Z Introduction of Electrolytic and Water Balance Substance into Central Vein, Percutaneous Approach (ICD-10-PCS; principal; 2020-07-27)
DX: C20 Malignant neoplasm of rectum (principal); Z76.89 Persons encountering health services in other specified circumstances
CPT/HCPCS: 96360; 96361

== ENCOUNTER → 2020-08-01 | Day surgery (SDC) | payer BC, OTHER ==
[~2020-08-01] MED LIST changes: +DEXAMETHASONE SODIUM PHOSPHATE 20 MG, DIPHENHYDRAMINE 25 MG in SODIUM CHLORIDE 100 ML IVPB ONE; +DEXTROSE 5% IV ONE; +DEXTROSE 5% IVPB ONE; +FAMOTIDINE 20 MG/50 ML IVPB 20 MG/50 ML MG IVPB ONE; +FLUOROURACIL 2,500 MG/50 ML VIAL IVPUSH ONE; +FLUOROURACIL CP ONE; +LEUCOVORIN IVPB ONE; +OXALIPLATIN IV ONE; +PALONOSETRON HCL 0.25 MG/5 ML VIAL IVPUSH ONE; -SODIUM CHLORIDE 1,000 ML IV STA; +SODIUM CHLORIDE CP ONE; +WATER IV ONE; +WATER IVPB ONE
[2020-08-01 09:51] LABS: BASO % 2.6 % (0-2.0); HEMATOCRIT 36.1 % (35.4-49); HEMOGLOBIN 12.8 GM/dL (11.7-16.9); LYMPH % 16.4 % (8-40); MCH 37.6 pg (25.7-33.7); MCHC 35.4 g/dl (32.0-35.9); MEAN CELL VOLUME 106.1 fl (80-96); MEAN PLT VOLUME 8.3 fl (7.5-11.1); MONO % 14.9 % (3.8-10.2); NEUT % 59.1 % (42.8-82.8); PLATELET COUNT 144 K/MM3 (134-434); RDW 14.9 % (11.9-15.9); WHITE BLOOD COUNT 3.7 K/mm3 (4.0-10.0)
[2020-08-01 10:15] LABS: ALBUMIN 3.9 g/dl (3.4-5.0); BLOOD UREA NITROGEN 14.4 mg/dL (7-18); CALCIUM 8.5 mg/dL (8.5-10.1); MAGNESIUM 2.1 mg/dL (1.8-2.4)
[2020-08-01 10:18] LABS: BILIRUBIN,DIRECT 0.4 mg/dL (0.0-0.2); CREATININE 1.1 mg/dL (0.55-1.3)
[2020-08-01 10:20] LABS: BILIRUBIN,TOTAL 1.9 mg/dL (0.2-1); TOT PROT 6.8 g/dl (6.4-8.2)
[2020-08-01 11:28] LABS: ANISOCYTOSIS 1+; MACROCYTOSIS 1+; PLATELET ESTIMATE DECREASED
== END | disposition home or self-care (01) ==
LOC: JONCCHEMO 07:42
PROVIDERS: ATTEND Internal Medicine Hematology & Oncology
DX: Z53.8 Procedure and treatment not carried out for other reasons (principal)
CPT/HCPCS: 36415; 80048; 80076; 83735; 85025

== ENCOUNTER 2020-08-08 07:12 | Day surgery (SDC) | payer BC, OTHER ==
[2020-08-08 10:08] LABS: HEMATOCRIT 36.3 % (35.4-49); HEMOGLOBIN 13.1 GM/dL (11.7-16.9); MCH 37.5 pg (25.7-33.7); MCHC 36.1 g/dl (32.0-35.9); MEAN PLT VOLUME 8.6 fl (7.5-11.1); PLATELET COUNT 136 K/MM3 (134-434); RBC 3.49 M/mm3 (4.00-5.60); RDW 13.4 % (11.9-15.9); WHITE BLOOD COUNT 2.4 K/mm3 (4.0-10.0)
[2020-08-08] MEDS ORDERED: SODIUM CHLORIDE 1,000 ML IV STA (10:24)
[2020-08-08 10:44] LABS: BLOOD UREA NITROGEN 14.7 mg/dL (7-18); CALCIUM 8.8 mg/dL (8.5-10.1)
[2020-08-08 10:45] LABS: ALBUMIN 3.9 g/dl (3.4-5.0); MAGNESIUM 2.2 mg/dL (1.8-2.4)
[2020-08-08 10:49] LABS: BILIRUBIN,TOTAL 2.1 mg/dL (0.2-1); TOT PROT 6.9 g/dl (6.4-8.2)
[2020-08-08 11:52] LABS: ANISOCYTOSIS 0; MACROCYTOSIS 0
[2020-08-08 11:54] LABS: PLATELET ESTIMATE NORMAL
[2020-08-08] MEDS: TBO-FILGRASTIM 300 MCG/0.5 ML DISP.SYRINGE SQ ONE ×2 (13:09)
[2020-08-08 16:31] VITALS: TEMP 98
[2020-08-08 16:32] VITALS: BP 109/63; PULSE 55
== END 2020-08-08 13:15 | disposition home or self-care (01) ==
LOC: JONCCHEMO 07:12
PROVIDERS: ATTEND Internal Medicine Hematology & Oncology
PROC: 3E0437Z Introduction of Electrolytic and Water Balance Substance into Central Vein, Percutaneous Approach (ICD-10-PCS; principal; 2020-08-08)
PROC: 3E013GC Introduction of Other Therapeutic Substance into Subcutaneous Tissue, Percutaneous Approach (ICD-10-PCS; 2020-08-08)
DX: C20 Malignant neoplasm of rectum (principal); Z76.89 Persons encountering health services in other specified circumstances
CPT/HCPCS: 36415; 80053; 83735; 85025; 96360; 96361; 96372; J1447

== ENCOUNTER 2020-12-13 04:22 | Day surgery (SDC) | payer BC, OTHER ==
[2020-12-11 13:12] VITALS: BMI 20.1
[2020-12-13] MEDS ORDERED: LIDOCAINE HCL 1%, 10 MG/ML (20ML VIAL) ONE ×2 (08:05→12:00)
[2020-12-13] MEDS ORDERED: PROPOFOL 20 ML ONE (12:49)
[2020-12-13] MEDS ORDERED: MIDAZOLAM HCL 2 MG/2 ML SINGLE DOSE VIAL ONE (12:49)
[2020-12-13] MEDS ORDERED: LIDOCAINE HCL/PF 2% SDV 5ML VIAL ONE (13:03)
[2020-12-13] MEDS ORDERED: ceFAZolin SODIUM 1 GM VIAL IVPB ONE (13:13)
[2020-12-13] MEDS ORDERED: LIDOCAINE HCL 1%, 10 MG/ML (20ML VIAL) INF ONE (13:16)
[2020-12-13] MEDS ORDERED: ONDANSETRON 4 MG/2 ML VIAL IVPUSH PRN (13:52)
[2020-12-13] MEDS ORDERED: oxyCODONE HCL 5 MG TABLET PO PRN (13:52)
[2020-12-13] MEDS ORDERED: LACTATED RINGERS SOLUTION 1,000 ML IV SCH (14:00)
[2020-12-13 17:31] VITALS: BP 100/64; PULSE 56; TEMP 98.4
== END 2020-12-13 16:20 | disposition home or self-care (01) ==
LOC: JASU-SURG 04:22
PROVIDERS: ATTEND Surgery Vascular Surgery
PROC: 0JPT0WZ Removal of Totally Implantable Vascular Access Device from Trunk Subcutaneous Tissue and Fascia, Open Approach (ICD-10-PCS; principal; 2020-12-13 13:30)
DX: C18.9 Malignant neoplasm of colon, unspecified (principal)
CPT/HCPCS: 88300-TC